=== PATIENT | female | born 1950 | race Caucasian/White ===

== ENCOUNTER 2017-08-14 23:59 | Emergency (ER) | payer OTHER ==
[~2017-08-14] VITALS: Ht 162.6 cm; Wt 68.0 kg
--- NOTE | ~2017-08-14 | EKG ---
[address] [address] ELECTROCARDIOGRAM REPORT Name: JAZMIN PENNINGTON [id number] Admission: 08/14/17 Attend Phys: Discharge: 08/15/17 Date of : 48 Report #: [id number] THIS REPORT FOR: //name// [facility] ED Test Date: 2017-08-15 Test Time: 00:08:28 Pat Name: JAZMIN PENNINGTON Department: Room: Gender: F [employer]: TIM : 1950 Requested By: Kenan Ha Order Number: [id number] MD: Gigi Haynes Measurements Intervals [place] Rate: 79 P: 22 AL: 177 QRS: -10 QRSD: 88 T: 38 QT: 365 QTc: 419 Interpretive Statements Sinus rhythm Left ventricular hypertrophy No previous ECG available for comparison Electronically Signed On 08-15-2017 7:55:44 [employer] by Gigi Haynes [email or web address] <ELECTRONICALLY SIGNED> By: Gigi Haynes MD, [facility] 08/15/17 [id number] 0008 0008 Gigi Haynes MD, FACC /EPI
[2017-08-15] MEDS ORDERED: NORFLEX100 MG PO (01:11)
== END 2017-08-15 01:45 | disposition home or self-care (01) ==
LOC: ER 23:59
DX: S46.911A Strain of unspecified muscle, fascia and tendon at shoulder and upper arm level, right arm, initial encounter (principal); F17.210 Nicotine dependence, cigarettes, uncomplicated; Z88.0 Allergy status to penicillin; W18.39XA Other fall on same level, initial encounter; Y93.89 Activity, other specified; Y92.89 Other specified places as the place of occurrence of the external cause; Y99.8 Other external cause status